=== PATIENT | male | born 1960 | race Caucasian/White ===

== ENCOUNTER 2016-08-04 14:57 | Emergency (ER) | payer SELFPAY ==
[~2016-08-04] VITALS: Ht 172.7 cm; Wt 80.0 kg
[2016-08-04] MEDS ORDERED: TETANUS, DIPHTHERIA, PERTUSSIS VAC/PF 0.5ML (>7YR OLD) IM ONE (17:00)
[2016-08-04] MEDS ORDERED: IBUPROFEN 600MG TABLET PO ONE (17:00)
[2016-08-04] MEDS ORDERED: BACITRACIN ZINC OINT UDPKT TOP ONE (17:00)
[2016-08-04 17:11] VITALS: BP 126/77
== END 2016-08-04 18:19 | disposition home or self-care (01) ==
LOC: ER 14:59
DX: S51.852A Open bite of left forearm, initial encounter (principal); W54.0XXA Bitten by dog, initial encounter; Y93.89 Activity, other specified; Y92.89 Other specified places as the place of occurrence of the external cause; Y99.8 Other external cause status
CPT/HCPCS: 73090; 90471; 90715; 99284